=== PATIENT | female | born 1990 | race Caucasian/White ===

== ENCOUNTER 2017-09-23 08:16 | Emergency (ER) | payer MEDICAID ==
[~2017-09-23] VITALS: Ht 167.6 cm; Wt 71.0 kg
[2017-09-23] MEDS ORDERED: MORPHINE SULFATE 4 MG/ML CPJ (NOT FOR IM USE) IV ONE ×2 (09:30→15:30)
[2017-09-23] MEDS ORDERED: SODIUM CHLORIDE 0.9% 1,000 ML IV ONE (09:30)
[2017-09-23] MEDS ORDERED: ONDANSETRON HCL 4MG/2ML VIAL IV ONE (09:30)
[2017-09-23] MEDS ORDERED: DEXAMETHASONE 10 MG/ML VIAL IV ONE (09:30)
[2017-09-23 09:44] LABS: BASOPHILS % 0.2 % (0.0-2.0); EOSINOPHILS % 0.1 % (0.0-5.0); HEMATOCRIT. 38.3 % (36.0-48.0); MEAN CORPUSCULAR HEMOGLOBIN 28.6 pg (28.0-32.0); MEAN CORPUSCULAR VOLUME 84.4 fL (81.0-99.0); MEAN PLATELET VOLUME 8.7 fl (7.4-10.4); MONOCYTES % 10.3 % (2.0-8.0); NEUTROPHILS % 79.4 % (40.0-76.0); PLATELET 285 x1000/uL (130-400); RED BLOOD CELL COUNT 4.53 mill/uL (4.2-5.4); RED CELL DISTRIBUTION WIDTH 13.4 % (11.6-14.6)
[2017-09-23 09:51] LABS: CHLORIDE 101 mEq/L (98-107)
[2017-09-23] MEDS ORDERED: ONDANSETRON HCL 4MG/2ML VIAL ONE (09:57)
[2017-09-23] MEDS ORDERED: CEFTRIAXONE 1 G PREMIX 50 ML IV ONE (11:45)
[2017-09-23] MEDS ORDERED: IOHEXOL-300 100 ML BOTTLE ONE (14:07)
[2017-09-23] MEDS ORDERED: TETRACAINE/BENZOCAINE/BUTAMBEN 20 GM SPRAY MM NR (15:00)
[2017-09-23] MEDS ORDERED: LORAZEPAM 0.5MG TABLET PO ONE (15:30)
[2017-09-23 17:45] VITALS: BP 115/62
== END 2017-09-23 18:31 | disposition home or self-care (01) ==
LOC: ER 11:10
DX: J36 Peritonsillar abscess (principal); D72.829 Elevated white blood cell count, unspecified; E87.6 Hypokalemia
CPT/HCPCS: 36415; 42700; 70491; 80053; 85025; 87040; 87070; 87430; 96361; 96365; 96366; 96375; 96376; 99285; J0696; J1100; J2270; J2405; J7030; Q9967

== ENCOUNTER 2024-01-01 10:13 | Emergency (ER) | payer MEDICAID, OTHER ==
[~2024-01-01] VITALS: Ht 167.6 cm; Wt 75.0 kg
[2024-01-01 10:21] VITALS: BP 105/60; PULSE 70; RESP 18; TEMP 97.9; O2SAT 98
[2024-01-01 10:25] VITALS: O2SAT 99
[2024-01-01] MEDS ORDERED: AMOX1TAB16 MT (14:04)
== END 2024-01-01 14:46 | disposition home or self-care (01) ==
LOC: ER 10:30
DX: H66.92 Otitis media, unspecified, left ear (principal)
CPT/HCPCS: 99283

== ENCOUNTER 2024-01-04 18:32 | Emergency (ER) | payer MEDICAID ==
[~2024-01-04] VITALS: Ht 167.6 cm; Wt 78.0 kg
[~2024-01-04 18:32] MED LIST: AMOX1TAB16 MT
[2024-01-04 18:33] VITALS: O2SAT 99
[2024-01-04] MEDS: HYDROCODONE/ACETAMINOPHEN 5/325MG TABLET PO ONE (19:37)
[2024-01-04] MEDS ORDERED: CIPHCO LEFT EAR (20:38)
[2024-01-04 21:00] VITALS: BP 108/67; PULSE 74; RESP 17; TEMP 36.94740; O2SAT 99
== END 2024-01-04 21:08 | disposition home or self-care (01) ==
LOC: ER 18:32
DX: T16.2XXA Foreign body in left ear, initial encounter (principal); H60.92 Unspecified otitis externa, left ear; X58.XXXA Exposure to other specified factors, initial encounter; Y93.89 Activity, other specified; Y92.89 Other specified places as the place of occurrence of the external cause; Y99.8 Other external cause status
CPT/HCPCS: 69200; 99284